=== PATIENT | male | born 1940 | race Caucasian/White ===

== ENCOUNTER 2017-06-12 12:39 | Inpatient (IN) | payer OTHER ==
[~2017-06-12] VITALS: Ht 167.6 cm; Wt 69.9 kg
[~2017-06-12 12:39] MED LIST: ADULT ASPIRIN81 MG PO; ADVIL200 MG PO; COLACE100 MG PO; DILAUDID2 MG PO; MILK OF MAGN PO
[2017-06-12 13:06] VITALS: BP 141/87
[2017-06-12] MEDS ORDERED: HYDROMORPHONE HC2 MG PO (16:22)
[2017-06-12 18:06] VITALS: BP 145/75
[2017-06-12 19:29] VITALS: BP 136/65
[2017-06-12 22:01] VITALS: BP 137/88
[2017-06-12 23:20] VITALS: BP 127/79
[2017-06-13 03:33] VITALS: BP 154/85
[2017-06-13 08:14] VITALS: BP 160/88
[2017-06-13 09:23] LABS: BASOPHIL (%) 0.2 % (0-1); EOSINOPHIL (%) 0 % (0-5); HEMATOCRIT 41.4 % (38.0-50.0); HEMOGLOBIN 14.6 G/DL (12.5-16.6); IMMATURE GRANULOCYTE (%) 0.4 % (0.0-0.7); LYMPHOCYTE (%) 6.8 % (15-42); LYMPHOCYTE COUNT 0.8 K/uL (1.0-2.8); MCH 32.8 PG (29.0-34.0); MCHC 35.3 G/DL (30.0-36.0); MONOCYTE (%) 9.5 % (3-12); MONOCYTE COUNT 1.1 K/uL (0-0.8); NEUTROPHIL (%) 83.1 % (45-76); PLATELET COUNT 217 K/uL (156-360); RBC DIS.WIDTH-CV 11.7 % (11.8-14.6); RBC DIS.WIDTH-SD 40.2 % (39-53); RED BLOOD COUNT 4.45 M/uL (4.00-5.50)
[2017-06-13 09:46] LABS: ALBUMIN 3.7 G/DL (3.2-4.8); ALKALINE PHOSPHATASE 41 IU/L (3-129); ALT (GPT) 13 IU/L (3-49); AST (GOT) 14 IU/L (2-34); CHLORIDE 101 MEQ/L (99-109); CREATININE 0.9 MG/DL (0.6-1.3); GFR ESTIMATE (CALCULATED) > 59 mL/min/ (58.99-99999); GLUCOSE 113 mg/dL (70-99); POTASSIUM 3.7 MEQ/L (3.7-5.4); SODIUM 134 MEQ/L (136-147); TOTAL BILIRUBIN 0.9 MG/DL (0.0-1.0); UREA NITROGEN (BUN) 15 mg/dL (9-23)
[2017-06-13 11:20] VITALS: BP 170/92
[2017-06-13 16:56] VITALS: BP 170/80
[2017-06-13 23:52] VITALS: BP 160/80
[2017-06-14 08:02] VITALS: BP 156/81
[2017-06-14 15:12] VITALS: BP 137/77
[2017-06-15 00:12] VITALS: BP 158/92
[2017-06-15 08:28] VITALS: BP 152/78
[2017-06-15 09:36] LABS: HEMATOCRIT 43.4 % (38.0-50.0); HEMOGLOBIN 15.4 G/DL (12.5-16.6); MCH 32.9 PG (29.0-34.0); MCHC 35.5 G/DL (30.0-36.0); MCV 92.7 FL (86-99); PLATELET COUNT 211 K/uL (156-360); RBC DIS.WIDTH-CV 11.9 % (11.8-14.6); RBC DIS.WIDTH-SD 40.9 % (39-53); RED BLOOD COUNT 4.68 M/uL (4.00-5.50); WHITE BLOOD COUNT 11.7 K/uL (4.1-10.2)
[2017-06-15 10:10] LABS: ALBUMIN 3.5 G/DL (3.2-4.8); ALKALINE PHOSPHATASE 40 IU/L (3-129); ALT (GPT) 14 IU/L (3-49); CHLORIDE 98 MEQ/L (99-109); CREATININE 0.8 MG/DL (0.6-1.3); GFR ESTIMATE (CALCULATED) > 59 mL/min/ (58.99-99999); GLUCOSE 150 mg/dL (70-99); POTASSIUM 3.9 MEQ/L (3.7-5.4); SODIUM 132 MEQ/L (136-147); TOTAL PROTEIN 6.4 G/DL (6.4-8.3); UREA NITROGEN (BUN) 21 mg/dL (9-23)
[2017-06-15 10:11] LABS: AST (GOT) 21 IU/L (2-34); TOTAL BILIRUBIN 0.7 MG/DL (0.0-1.0)
[2017-06-15 15:46] VITALS: BP 126/84
[2017-06-15 23:12] VITALS: BP 152/91
[2017-06-16 06:08] LABS: HEMATOCRIT 38.3 % (38.0-50.0); HEMOGLOBIN 13.6 G/DL (12.5-16.6); MCH 32.9 PG (29.0-34.0); MCHC 35.5 G/DL (30.0-36.0); MCV 92.7 FL (86-99); PLATELET COUNT 189 K/uL (156-360); RBC DIS.WIDTH-CV 11.8 % (11.8-14.6); RBC DIS.WIDTH-SD 39.8 % (39-53); RED BLOOD COUNT 4.13 M/uL (4.00-5.50); WHITE BLOOD COUNT 8.7 K/uL (4.1-10.2)
[2017-06-16 06:35] LABS: CHLORIDE 103 MEQ/L (99-109); CREATININE 0.8 MG/DL (0.6-1.3); GFR ESTIMATE (CALCULATED) > 59 mL/min/ (58.99-99999); POTASSIUM 3.7 MEQ/L (3.7-5.4); SODIUM 135 MEQ/L (136-147); UREA NITROGEN (BUN) 20 mg/dL (9-23)
[2017-06-16 06:36] LABS: GLUCOSE 102 mg/dL (70-99)
[2017-06-16 07:23] VITALS: BP 120/80
[2017-06-16 15:30] VITALS: BP 164/89
[2017-06-16 23:14] VITALS: BP 158/63
[2017-06-17 07:33] VITALS: BP 141/87
== END 2017-06-17 13:45 | disposition home health service (06) | DRG 982 ==
LOC: SDC 12:39 → ENRESERV 16:24 → 2SOUTH 16:43 → 3EAST 16:43 → ENRESERV 16:54 → 3EAST 17:39
PROVIDERS: Physician Assistant; Physician Assistant Medical
DX: N99.89 Other postprocedural complications and disorders of genitourinary system (principal); R33.8 Other retention of urine; R41.0 Disorientation, unspecified; R45.1 Restlessness and agitation; T40.2X5A Adverse effect of other opioids, initial encounter; M51.26 Other intervertebral disc displacement, lumbar region; G96.11 Dural tear; G96.0 Cerebrospinal fluid leak; E87.1 Hypo-osmolality and hyponatremia; K59.01 Slow transit constipation; D72.829 Elevated white blood cell count, unspecified; G89.18 Other acute postprocedural pain; I10 Essential (primary) hypertension; F41.9 Anxiety disorder, unspecified; F32.9 Major depressive disorder, single episode, unspecified; M19.90 Unspecified osteoarthritis, unspecified site; E78.00 Pure hypercholesterolemia, unspecified; H54.62 Unqualified visual loss, left eye, normal vision right eye; Z85.819 Personal history of malignant neoplasm of unspecified site of lip, oral cavity, and pharynx; Z92.3 Personal history of irradiation; Z96.642 Presence of left artificial hip joint; Z96.659 Presence of unspecified artificial knee joint
CPT/HCPCS: 72100; 74018; 76000; 80048; 80053; 85025; 85027; 97530 GO; 97530 GP; G0378; G8987 GO CJ; G8988 CI; J0131; J0690; J1100; J1170; J2250; J2405; J2710; J3480; J7030; J7643; S0020